=== PATIENT | female | born 1995 | race Caucasian/White ===

== ENCOUNTER 2018-06-25 12:06 | Observation (INO) ==
[2018-06-25] MEDS ORDERED: 0.9 % Sodium Chloride 1,000 ML IVC ONE ×2 (12:30→14:59)
[2018-06-25 12:51] LABS: Bilirubin,Urine Negative (Negative); Blood,Urine Negative (Negative); Clarity,Urine Cloudy (Clear); Color,Urine Yellow (Yellow); Glucose,Urine (UA) Normal (Normal); Ketones,Urine >=160 mg/dL (Negative); Leukocyte Esterase,Urine Moderate (Negative); Nitrite,Urine Negative (Negative); Protein,Urine 100 mg/dL (Neg-Trace); Urobilinogen,Urine Normal (Normal)
[2018-06-25 12:52] LABS: Bacteria,Urine Many per hpf (None-Few); Squamous Epithelial Cell,Urine Many per lpf (None-Few); WBC,Urine 50-100 per hpf (0-3)
[2018-06-25] MEDS ORDERED: Metoclopramide 10 MG/2 ML VIAL IVP ONE (13:16)
[2018-06-25 13:26] LABS: RBC,Urine 0-3 per hpf (0-3)
[2018-06-25 13:41] LABS: Basophils % 0.3 %; Hemoglobin 14.3 g/dL (11.5-15.4); Immature Granulocytes % 0.4 % (0-4); Lymphocytes # 1.2 K/mcL (0.6-4.6); Lymphocytes % 9.9 %; Mean Corpuscular HGB Conc 34.9 g/dL (31.6-35.5); Mean Corpuscular Volume 88.7 fL (83.0-100.0); Mean Platelet Volume 10.4 fL (9.4-12.4); Monocytes # 0.5 K/mcL (0.0-1.3); Monocytes % 4.1 %; Neutrophils # 10.4 K/mcL (1.6-8.9); Platelet Count 325 K/mcL (140-400); Red Blood Count 4.62 M/mcL (3.82-4.97); Red Cell Distribution Width 11.6 % (11.5-14.5); Segmented Neutrophils % 85.3 %
--- NOTE | 2018-06-25 13:49 | Emergency Department Note ---
Disposition Clinical Impression: Hyperemesis gravidarum, Dehydration, Urine ketones Disposition: Admitted As Inpatient Condition: Good Referrals: Josiah Gutierrez DO [Primary Care Provider] - General Adult HPI - General Chief complaint: ED Nausea/Vomiting/Diarrhea Stated complaint: dehydration, 12wks, 2 days Time Seen by Provider: 06/25/18 12:19 Source: patient Mode of arrival: ambulatory Limitations: no limitations Nursing Notes Reviewed: Yes Vital Signs Reviewed: Yes - History of Present Illness HPI Narrative: Patient seen and evaluated today at OB office. Patient with nausea vomiting and concern for dehydration. Patient had urinalysis which showed protein and ketones. The patient has been dealing with persistent nausea and vomiting since she found out she is . She has been treated with multiple anti-emetics at home without significant relief. Patient was seen in the ER earlier in the week and treated within the emergency department and sent home. Ultrasound reportedly per patient looked well today without any abnormalities. She was referred to the ER for symptomatically treatment and admission. Pain Scale: 0 - Related Data Home Medications Medication Instructions Recorded Confirmed No Known Home Drugs 06/25/18 06/25/18 Allergies Allergy/AdvReac Type Severity Reaction Status Date / Time No Known Allergies Allergy Verified 05/19/18 13:16 All systems ED: reviewed and negative except as stated. Review of Systems: As Per HPI Constitutional: Reports: weakness. Denies: fever, chills Cardiovascular: Denies: chest pain Respiratory: Denies: cough, dyspnea Gastrointestinal: Reports: abdominal pain, nausea, vomiting Genitourinary: Denies: urgency, dysuria Musculoskeletal: Denies: back pain Integumentary: Denies: rash, abrasion Neurological: Denies: headache Endocrine: Reports: fatigue Past Medical History - Past Medical History Medical history: Reports: no medical history Psychiatric history: Reports: no psych history CATHODE BUILDER history: Reports: no CATHODE BUILDER history - Social History Smoking Status: Never smoker Smokeless Tobacco Status: No Alcohol use: Reports: none Drug use: Reports: none Physical Exam General: Well appearing, nontoxic, no acute distress Head: Normocephalic Atraumatic Eyes: PERRL, EOMI ENT: Airway patent, no stridor Neck: supple, no meningismus Chest: Lungs clear to auscultation bilateral Cardiac: Regular rate and rhythm, no murmurs, rubs or gallops Abdomen: soft, nontender, nondistended; no guarding, rebound, or tenderness to percussion Musculoskeletal: Calves symmetric, nontender, no palpable cord Skin: No rash, normal skin tone Neuro: Alert and Oriented to person, place, and time; No focal deficit, CN 2-12 symmetric and intact Course - Reevaluation(s) Reevaluation #1: The patient received Reglan and Benadryl with no longer need to hold the emesis bag with continued complaint of significant nausea and vomiting. Phenergan will be tried. Macrobid initially ordered for her uric UTI but given her first trimester she will have this switched to Keflex. - Consultations Consultation #1: Discussed with OB. They are unable to admit secondary to her being 20 weeks. They do agree to the need for admission and they will consult. Consultation #2: Discussed with hospitalist. Patient accepted for admission. Vital Signs Temperature 98.0 F 06/25/18 12:10 Pulse Rate 108 06/25/18 12:10 Respiratory Rate 16 06/25/18 12:10 Blood Pressure 123/80 06/25/18 12:10 O2 Sat by Pulse Oximetry 99 06/25/18 12:10 Temperature 98.1 F 06/25/18 16:11 Pulse Rate 75 06/25/18 16:11 Respiratory Rate 14 06/25/18 16:11 Blood Pressure 105/70 06/25/18 16:11 O2 Sat by Pulse Oximetry 99 06/25/18 16:11 Oxygen Delivery Oxygen Delivery Room Air Medical Decision Making - Lab Data Result diagrams: 06/25/18 13:24 06/25/18 13:24 Lab Results 06/25/18 06/25/18 06/25/18 Range/Units 12:23 13:24 13:24 WBC 12.1 H (4.3-11.1) K/mcL RBC 4.62 (3.82-4.97) M/mcL Hgb 14.3 (11.5-15.4) g/dL Hct 41.0 (35.3-44.9) % MCV 88.7 (83.0-100.0) fL MCH 31.0 (28.0-33.3) pg MCHC 34.9 (31.6-35.5) g/dL RDW 11.6 (11.5-14.5) % Plt Count 325 (140-400) K/mcL MPV 10.4 (9.4-12.4) fL Immature Gran % 0.4 (0-4) % Seg Neutrophils % 85.3 % Lymphocytes % 9.9 % Monocytes % 4.1 % Eosinophils % 0.0 % Basophils % 0.3 % Neutrophils # 10.4 H (1.6-8.9) K/mcL Lymphocytes # 1.2 (0.6-4.6) K/mcL Monocytes # 0.5 (0.0-1.3) K/mcL Eosinophils # 0.0 (0.0-0.6) K/mcL Basophils # 0.0 (0.0-0.2) K/mcL Sodium 136 (136-145) mEq/L Potassium 3.5 (3.5-5.1) mEq/L Chloride 102 (98-107) mEq/L Carbon Dioxide 20 L (23-29) mEq/L BUN 5 L (6-20) mg/dL Creatinine 0.44 L (0.60-1.20) mg/dL Est GFR ( Amer) > 60 (> 60) Est GFR (Non-Af Amer) > 60 (> 60) BUN/Creatinine Ratio 11 (6-26) Glucose 95 (70-105) mg/dL Calculated Osmolality 279 L (280-300) Calcium 9.6 (8.6-10.3) mg/dL Total Bilirubin 0.4 (0.3-1.0) mg/dL Direct Bilirubin 0.1 (0.0-0.2) mg/dL Indirect Bilirubin 0.3 (0.0-1.2) mg/dL AST 9 L (13-39) Units/L ALT 9 (7-52) Units/L Alkaline Phosphatase 44 (34-104) Units/L Serum Total Protein 7.8 (6.4-8.9) g/dL Albumin 4.2 (3.5-5.7) g/dL Globulin 3.6 H (2.4-3.5) g/dL Albumin/Globulin Ratio 1.2 (1.1-2.2) Lipase 9 L (11-82) Units/L Urine Color Yellow (Yellow) Urine Clarity Cloudy A (Clear) Urine pH 6.0 (5.0-8.0) pH Units Ur Specific [place] 1.030 H (1.010-1.025) Urine Protein 100 H (Neg-Trace) mg/dL Urine Glucose (UA) Normal (Normal) mg/dL Urine Ketones >=160 H (Negative) mg/dL Urine Blood Negative (Negative) Urine Nitrite Negative (Negative) Urine Bilirubin Negative (Negative) Urine Urobilinogen Normal (Normal) mg/dL Ur Leukocyte Esterase Moderate H (Negative) Urine Microscopic RBC 0-3 (0-3) per hpf Urine Microscopic WBC 50-100 H (0-3) per hpf Ur Squamous Epith Cells Many H (None-Few) per lpf Urine Bacteria Many H (None-Few) per hpf Hyaline Casts Test Not Performed Urine Yeast Test Not Performed Ur Culture Indicated? NO. A (NO) Blood Type Antibody Screen 06/25/18 Range/Units 13:24 WBC (4.3-11.1) K/mcL RBC (3.82-4.97) M/mcL Hgb (11.5-15.4) g/dL Hct (35.3-44.9) % MCV (83.0-100.0) fL MCH (28.0-33.3) pg MCHC (31.6-35.5) g/dL RDW (11.5-14.5) % Plt Count (140-400) K/mcL MPV (9.4-12.4) fL Immature Gran % (0-4) % Seg Neutrophils % % Lymphocytes % % Monocytes % % Eosinophils % % Basophils % % Neutrophils # (1.6-8.9) K/mcL Lymphocytes # (0.6-4.6) K/mcL Monocytes # (0.0-1.3) K/mcL Eosinophils # (0.0-0.6) K/mcL Basophils # (0.0-0.2) K/mcL Sodium (136-145) mEq/L Potassium (3.5-5.1) mEq/L Chloride (98-107) mEq/L Carbon Dioxide (23-29) mEq/L BUN (6-20) mg/dL Creatinine (0.60-1.20) mg/dL Est GFR ( Amer) (> 60) Est GFR (Non-Af Amer) (> 60) BUN/Creatinine Ratio (6-26) Glucose (70-105) mg/dL Calculated Osmolality (280-300) Calcium (8.6-10.3) mg/dL Total Bilirubin (0.3-1.0) mg/dL Direct Bilirubin (0.0-0.2) mg/dL Indirect Bilirubin (0.0-1.2) mg/dL AST (13-39) Units/L ALT (7-52) Units/L Alkaline Phosphatase (34-104) Units/L Serum Total Protein (6.4-8.9) g/dL Albumin (3.5-5.7) g/dL Globulin (2.4-3.5) g/dL Albumin/Globulin Ratio (1.1-2.2) Lipase (11-82) Units/L Urine Color (Yellow) Urine Clarity (Clear) Urine pH (5.0-8.0) pH Units Ur Specific [place] (1.010-1.025) Urine Protein (Neg-Trace) mg/dL Urine Glucose (UA) (Normal) mg/dL Urine Ketones (Negative) mg/dL Urine Blood (Negative) Urine Nitrite (Negative) Urine Bilirubin (Negative) Urine Urobilinogen (Normal) mg/dL Ur Leukocyte Esterase (Negative) Urine Microscopic RBC (0-3) per hpf Urine Microscopic WBC (0-3) per hpf Ur Squamous Epith Cells (None-Few) per lpf Urine Bacteria (None-Few) per hpf Hyaline Casts Urine Yeast Ur Culture Indicated? (NO) Blood Type O POSITIVE Antibody Screen NEGATIVE
[2018-06-25 14:04] LABS: Alanine Aminotransferase 9 Units/L (7-52); Albumin 4.2 g/dL (3.5-5.7); Albumin/Globulin Ratio 1.2 (1.1-2.2); Alkaline Phosphatase 44 Units/L (34-104); Aspartate Amino Transferase 9 Units/L (13-39); BUN/Creatinine Ratio 11 (6-26); Bilirubin,Direct 0.1 mg/dL (0.0-0.2); Bilirubin,Indirect 0.3 mg/dL (0.0-1.2); Bilirubin,Total 0.4 mg/dL (0.3-1.0); Blood Urea Nitrogen 5 mg/dL (6-20); Calcium 9.6 mg/dL (8.6-10.3); Carbon Dioxide 20 mEq/L (23-29); Chloride 102 mEq/L (98-107); Globulin 3.6 g/dL (2.4-3.5); Glucose 95 mg/dL (70-105); Lipase 9 Units/L (11-82); Osmolality,Calculated 279 (280-300); Potassium 3.5 mEq/L (3.5-5.1); Sodium 136 mEq/L (136-145); Total Protein 7.8 g/dL (6.4-8.9); eGFR For Non-African Americans > 60 (> 60)
[2018-06-25] MEDS ORDERED: Nitrofurantoin (BID) 100 MG CAPSULE PO SCH (14:30)
[2018-06-25] MEDS ORDERED: cephALEXin 250 MG CAPSULE PO STA (14:55)
[2018-06-25] MEDS ORDERED: Naloxone 0.4 MG/ML INJ IVP PRN (14:58)
[2018-06-25] MEDS ORDERED: Ringers Solution, Lactated 1,000 ML IVC SCH (15:00)
--- NOTE | 2018-06-25 15:15 | Internal Med History&Physical ---
Date of Encounter: 06/25/18 Time of Encounter: 16:24 Internal Medicine - H&P: HPI Chief complaint: Vomiting Admitted From: Home Plans for Post Hospital Care: Home History of present illness: Ms. Meza is a 22 year old female with no PMH who is at 12 weeks EGA presenting with persistent nausea and vomiting and being unable to hold any food down since 6 days ago, prior to that her n/v had improved She denies any other complains ROS is not contributory Work up in ER shows mild leukocytosis, no left shift. Chem/LFT/Lipase WNL. UA was concentrated, with ketonuria and +LE. No nitrites, culture has been sent She will be placed on observation for SIRS, Hyperemesis and Asymptomatic bacteriuria. She is hemodynamically and clinically stable at this time OBGYN will be seeing in consult Past Med Surg Social Fam HX - Past Medical History Medical history: no medical history Psychiatric history: no psych history - Social History Smoking Status: Never smoker Smokeless Tobacco Status: No Alcohol use: none Drug use: none Internal Medicine - H&P: Meds No Known Home Drugs 06/25/18 [History] Allergy/AdvReac Type Severity Reaction Status Date / Time No Known Allergies Allergy Verified 05/19/18 13:16 All Systems PM: A 10-system review of systems was performed and is negative for pertinent findings except as documented above in the HPI. - Constitutional Constitutional: no chills, no fever(s), no night sweats - EENT Eyes: no change in vision, no discharge, no pain, no photophobia Ears: no ear discharge, no ear pain, no tinnitus Nose, mouth and throat: no dysphagia, no nasal discharge, no neck pain, no sore throat - Cardiovascular Cardiovascular ROS IM: no chest pain, no diaphoresis, no dyspnea, no lightheadedness, no palpitations, no syncope - Respiratory Respiratory: no cough, no dyspnea, no wheezing, no excessive phlegm production - Gastrointestinal Gastrointestinal: nausea, vomiting, no abdominal pain, no diarrhea, no hematemesis, no hematochezia, no melena - Genitourinary Genitourinary: no change in urinary stream, no dysuria, no flank pain, no hematuria - Musculoskeletal Musculoskeletal ROS IM: no numbness, no tingling - Integumentary Integumentary IM: no rash, no unusual bruising - Neurological Neurological ROS: no confusion, no convulsions, no focal weakness, no numbness, no tingling, no tremor(s) - Hematologic/Lymphatic Hematologic/Lymphatic: no easy bruising - Constitutional Vitals: Temp Pulse Resp BP Pulse Ox 98.0 F 108 16 123/80 99 06/25/18 12:10 06/25/18 12:10 06/25/18 12:10 06/25/18 12:10 06/25/18 12:10 General appearance: Present: A&O X 3, pleasant, no acute distress Exam: see below - Head Head exam: Present: atraumatic, normocephalic - Eye Eye exam: Present: PERRL, conjuntiva pink, sclera anicteric Pupils: Present: PERRL - Neck Neck exam general surgery: Present: supple, trachea midline. Absent: lymphadenopathy - Respiratory Respiratory exam: Present: CTAB. Absent: accessory muscle use, rales, rhonchi, wheezes - Cardiovascular Cardiovascular exam: Present: RRR, +S1, +S2. Absent: diastolic murmur, gallop, rubs, systolic murmur - GI/Abdominal GI/Abdominal exam: Present: normal bowel sounds, soft, no peritoneal signs. Absent: distended, tenderness - Extremities Exam Extremities exam: Present: warm, radial pulses palpable and symmetrical. Absent: calf tenderness, cyanotic, pedal edema - Neurological Exam Neurological exam: Present: CN II-XII intact, oriented X3, no focal deficits. Absent: pronater drift, facial droop, speech deficit - Skin Skin exam: Present: dry, intact Internal Med - H&P Results - Labs CBC & Chem 7: 06/25/18 13:24 06/25/18 13:24 Labs: Short CBC 06/25/18 Range/Units 13:24 WBC 12.1 H (4.3-11.1) K/mcL Hgb 14.3 (11.5-15.4) g/dL Hct 41.0 (35.3-44.9) % Plt Count 325 (140-400) K/mcL Neutrophils # 10.4 H (1.6-8.9) K/mcL BMP 06/25/18 13:24 Sodium 136 Potassium 3.5 Chloride 102 Carbon Dioxide 20 L BUN 5 L Creatinine 0.44 L Glucose 95 Calcium 9.6 Liver Function 06/25/18 Range/Units 13:24 Total Bilirubin 0.4 (0.3-1.0) mg/dL Direct Bilirubin 0.1 (0.0-0.2) mg/dL AST 9 L (13-39) Units/L ALT 9 (7-52) Units/L Alkaline Phosphatase 44 (34-104) Units/L Albumin 4.2 (3.5-5.7) g/dL Urine 06/25/18 Range/Units 12:23 Urine Color Yellow (Yellow) Urine Clarity Cloudy A (Clear) Urine pH 6.0 (5.0-8.0) pH Units Ur Specific [place] 1.030 H (1.010-1.025) Urine Protein 100 H (Neg-Trace) mg/dL Urine Glucose (UA) Normal (Normal) mg/dL - Assessment and plan (1) SIRS (systemic inflammatory response syndrome) Current Visit: Yes Status: Acute Assessment and plan: HR n admission 108, rapidly imroved with hydration Leukocytosis which could have been due to dehydration and or Await urine culture Continue IVF hydration (2) Asymptomatic bacteriuria during Current Visit: Yes Status: Acute Assessment and plan: COntinue Keflex, as long as patient can take po Follow urine culture (3) Hyperemesis gravidarum Current Visit: Yes Status: Acute Assessment and plan: Management per OTTO dempsey, dahiana (4) Current Visit: Yes Status: Acute Assessment and plan: OTTO dempsey noted Qualifiers: Weeks of gestation: 12 weeks Qualified Code(s): Z3A.12 - 12 weeks gestation of - Time Spent With Patient Total time spent is greater than 50% in coordination of care (as documented) at patient's floor/unit and/or counseling patient:
[2018-06-25] MEDS ORDERED: cefTRIAXone 1,000 MG in Water for inj. (sterile) 20 ML 10 ML IVP SCH (16:00)
--- NOTE | 2018-06-25 16:38 | OB/GYN Consult Note ---
Date of Encounter: 06/25/18 Time of Encounter: 16:20 Assessment and Plan (1) Hyperemesis gravidarum Current Visit: Yes Status: Acute Thank you for the consult. We recommend the following: Clear liquid diet unless able to tolerate and then reduce to NPO. May advance to low residue/bland diet after 12 hours of ability to tolerate clear liquids and then advance slowly. MVI daily with 0.6mg folic acid added All additional LR infusions should include 25mg of B6 at maintenance Reglan 10mg every 8 hours scheduled Zofran 8mg every 12 hours scheduled Chlorpromazine 25mg IV every 6 hours Phenergan 12.5mg every 4-6 hours, prn Continue antibiotics as ordered per ED for UTI. Change medications to PO tomorrow if tolerating bland diet Discussed with patient the importance of staying on regularly scheduled medications and expectations with related nausea and vomiting. POC per consult with Dr Finn (2) 12 weeks gestation of Current Visit: Yes Status: Acute History of Present Illness Consult date: 06/25/18 Requesting physician: Attila Vargas Reason for consult: other (Hyperemesis Gravidarum) Chief complaint: HG History of present illness: Ms Meza is a 22 year old at 12 weeks 2 days gestation that was sent to the ED from the office for evaluation after her today. She c/o a 30 pound weightloss since prior to and inability to keep food and water down. She states that she has tried unisom, vitamin b6, phenergan, benadryl, scopolamine patches, and zofran without success. She is seen by Dr Acevedo for her care. She denies any vaginal discharge, leaking of fluid, and vag inal bleeding/cramping. Past Med Surg Social Fam HX - Past Medical History Medical history: no medical history Psychiatric history: no psych history - Social History Smoking Status: Never smoker Smokeless Tobacco Status: No Alcohol use: none Drug use: none Medications and Allergies No Known Home Drugs 06/25/18 [History] Allergy/AdvReac Type Severity Reaction Status Date / Time No Known Allergies Allergy Verified 05/19/18 13:16 Review of Systems All Systems: reviewed and no additional remarkable complaints except as stated Exam - Vital Signs Vital signs: Initial Vital Signs Temp Pulse Resp BP Pulse Ox 98.0 F 108 16 123/80 99 06/25/18 12:10 06/25/18 12:10 06/25/18 12:10 06/25/18 12:10 06/25/18 12:10 - Constitutional Constitutional: well developed, well nourished, no acute distress, average body habitus - HEENT HEENT: Normocephaly, Mucus Membranes Dry - Abdomen Abdomen: Present: gravid, non tender - Extremities Deep Tendon Reflex Grade: 2+ Normal Results Result Diagrams: 06/25/18 13:24 06/25/18 13:24 Abnormal lab results WBC 12.1 K/mcL (4.3-11.1) H 06/25/18 13:24 Neutrophils # 10.4 K/mcL (1.6-8.9) H 06/25/18 13:24 Carbon Dioxide 20 mEq/L (23-29) L 06/25/18 13:24 BUN 5 mg/dL (6-20) L 06/25/18 13:24 Creatinine 0.44 mg/dL (0.60-1.20) L 06/25/18 13:24 Calculated Osmolality 279 (280-300) L 06/25/18 13:24 AST 9 Units/L (13-39) L 06/25/18 13:24 Globulin 3.6 g/dL (2.4-3.5) H 06/25/18 13:24 Lipase 9 Units/L (11-82) L 06/25/18 13:24 Urine Clarity Cloudy (Clear) A 06/25/18 12:23 Ur Specific [place] 1.030 (1.010-1.025) H 06/25/18 12:23 Urine Protein 100 mg/dL (Neg-Trace) H 06/25/18 12:23 Urine Ketones >=160 mg/dL (Negative) H 06/25/18 12:23 Ur Leukocyte Esterase Moderate (Negative) H 06/25/18 12:23 Urine Microscopic WBC 50-100 per hpf (0-3) H 06/25/18 12:23 Ur Squamous Epith Cells Many per lpf (None-Few) H 06/25/18 12:23 Urine Bacteria Many per hpf (None-Few) H 06/25/18 12:23 Ur Culture Indicated? NO. (NO) A 06/25/18 12:23 All other labs normal. Consult Discharge Plan - Plan Referrals: Josiah Gutierrez DO [Primary Care Provider] -
[2018-06-25] MEDS: Ondansetron 4 MG/2 ML VIAL IVP SCH (17:56)
[2018-06-25] MEDS: Pyridoxine (B-6) 25 MG in Ringers Solution, Lactated 1,000 ML IVPB SCH (18:08)
[2018-06-25] MEDS ORDERED: Pyridoxine (B-6) 50 MG TABLET PO SCH (21:00)
[2018-06-25] MEDS: cephALEXin 500 MG CAPSULE PO SCH (21:46)
[2018-06-26] MEDS: Metoclopramide 10 MG/2 ML VIAL IVP SCH ×2 (00:19→08:40)
[2018-06-26 05:23] LABS: Basophils # 0.1 K/mcL (0.0-0.2); Basophils % 0.6 %; Eosinophils # 0.1 K/mcL (0.0-0.6); Eosinophils % 1.3 %; Hematocrit 33.9 % (35.3-44.9); Hemoglobin 11.8 g/dL (11.5-15.4); Immature Granulocytes % 0.1 % (0-4); Lymphocytes # 2.6 K/mcL (0.6-4.6); Mean Corpuscular HGB Conc 34.8 g/dL (31.6-35.5); Mean Corpuscular Hemoglobin 31.1 pg (28.0-33.3); Mean Corpuscular Volume 89.4 fL (83.0-100.0); Mean Platelet Volume 10.5 fL (9.4-12.4); Monocytes # 0.7 K/mcL (0.0-1.3); Neutrophils # 4.9 K/mcL (1.6-8.9); Platelet Count 248 K/mcL (140-400); Red Blood Count 3.79 M/mcL (3.82-4.97); Red Cell Distribution Width 11.7 % (11.5-14.5)
[2018-06-26] MEDS: Ondansetron 4 MG/2 ML VIAL IVP SCH (05:26)
[2018-06-26 05:37] LABS: BUN/Creatinine Ratio 9 (6-26); Blood Urea Nitrogen 3 mg/dL (6-20); Calcium 8.4 mg/dL (8.6-10.3); Carbon Dioxide 19 mEq/L (23-29); Chloride 106 mEq/L (98-107); Glucose 95 mg/dL (70-105); Osmolality,Calculated 276 (280-300); Potassium 2.9 mEq/L (3.5-5.1); Sodium 135 mEq/L (136-145); eGFR For Non-African Americans > 60 (> 60)
[2018-06-26] MEDS: Pyridoxine (B-6) 25 MG in Ringers Solution, Lactated 1,000 ML IVPB SCH (05:46)
[2018-06-26] MEDS: cephALEXin 500 MG CAPSULE PO SCH (08:40)
[2018-06-26] MEDS: Potassium Chloride Elixir 20 MEQ/15 ML UDC PO SCH ×2 (08:43→10:38)
[2018-06-26] MEDS ORDERED: Prenatal Vit/FA 1 EACH TABLET PO SCH (09:00)
--- NOTE | 2018-06-26 10:20 | Discharge Summary ---
- NOTES TO OUTPATIENT PROVIDER Notes to Outpatient Provider: Patient was admitted for hyperemesis gravidarum. Mx with IVF with B6 and multiple anti-emetics. She was tolerating diet well and will be discharged on 06/26. To complete 5 day of Keflex for asymptomatic bacteriuria. Orders not resulted at time of discharge: Pending orders 06/25/18 14:23 Culture,Urine [RM] Stat Date of Encounter: 06/26/18 Time of Encounter: 08:00 - Discharge Diagnosis (1) Hyperemesis gravidarum Priority: Primary Status: Acute (2) SIRS (systemic inflammatory response syndrome) Priority: Secondary Status: Acute (3) Asymptomatic bacteriuria during Priority: Secondary Status: Acute (4) Priority: Secondary Status: Acute Qualifiers: Weeks of gestation: 12 weeks Qualified Code(s): Z3A.12 - 12 weeks gestation of Hospital course: Ms. Meza is a 22 year old female who is in 12 weeks gestation of who was admitted for hyperemesis gravidarum. Mx with IVF with B6 and multiple anti- emetics. She was tolerating diet well and will be discharged on 06/26. To comple te 5 day of Keflex for asymptomatic bacteriuria. Discharge discussed with: patient, nurse - Time Spent with Patient Total time spent providing and/or coordinating discharge services: 21 mins - Discharge Medications Prescriptions: Promethazine Syrup [Phenergan Syrup] 12.5 mg PO Q8HR PRN #150 mls PRN Reason: Nausea Ondansetron [Zofran ODT] 8 mg SL Q12HR #30 tab cephALEXin [Keflex] 500 mg PO QID 5 Days #20 capsule Home Medications: Ondansetron [Zofran ODT] 8 mg SL Q12HR #30 tab 06/26/18 [Rx] Promethazine Syrup [Phenergan Syrup] 12.5 mg PO Q8HR PRN #150 mls 06/26/18 [Rx] cephALEXin [Keflex] 500 mg PO QID 5 Days #20 capsule 06/26/18 [Rx] Allergies/Adverse Reactions: Allergy/AdvReac Type Severity Reaction Status Date / Time No Known Allergies Allergy Verified 05/19/18 13:16 Date of admission: 06/25/18 15:15 Primary care physician: Chase Gutierrez DO Consults: 06/25/18 14:25 Consult to DUAL HOSE CEMENTER [CONS] Stat Consulting Provider: ELECTRONIC DESIGN ENGINEER Nini Reason for Consult: dehydration Call Completed: No 06/25/18 16:30 Consult to Nutrition [CONS] Routine Comment: Consulting Provider: NUTRITION Reason for Dietary Consult: MST Score - Constitutional Vitals: Temp Pulse Resp BP Pulse Ox 98.5 F 86 14 107/72 98 06/26/18 06:55 06/26/18 06:55 06/26/18 06:55 06/26/18 06:55 06/26/18 08:20 General appearance: Present: A&O X 3, pleasant, no acute distress Exam: General: Alert and oriented, not in acute distress. Cardiovascular:Normal S1 & S2, No JVD. Pulse regular. Lungs: clear to auscultation, no wheezes/rales Abdomen:Soft, non-tender, no rigidity. Neurological:Normal cognition and motor skills. Non-focal - Patient Status Disposition: Home, Self-Care Condition: Good Functional capacity at discharge: independent ambulation Overall status at discharge: patient is progressing back to baseline - Discharge Instructions Instructions: Hyperemesis Gravidarum (DC) Follow Up With: Josiah Gutierrez DO [Primary Care Provider] - - Diet and Activity Activity: resume usual activities as tolerated Diet: advance to your usual diet
[2018-06-26 11:48] VITALS: BP 106/75
== END 2018-06-26 14:13 | disposition home or self-care (01) ==
LOC: EMEROOARM 12:06 → 3ANU 12:06 → SUATTDRO 15:15 → 3ANU 15:59
PROVIDERS: ADMIT Internal Medicine; ATTEND Internal Medicine

== ENCOUNTER → 2018-08-19 09:34 | Observation (INO) ==
[2018-08-19 02:21] LABS: Basophils % 0.4 %; Eosinophils % 0.5 %; Hemoglobin 12.4 g/dL (11.5-15.4); Immature Granulocytes % 0.3 % (0-4); Lymphocytes # 1.4 K/mcL (0.6-4.6); Lymphocytes % 17.2 %; Mean Corpuscular HGB Conc 34.4 g/dL (31.6-35.5); Mean Corpuscular Hemoglobin 31.2 pg (28.0-33.3); Mean Corpuscular Volume 90.7 fL (83.0-100.0); Mean Platelet Volume 9.9 fL (9.4-12.4); Monocytes # 0.9 K/mcL (0.0-1.3); Monocytes % 11.8 %; Neutrophils # 5.6 K/mcL (1.6-8.9); Platelet Count 276 K/mcL (140-400); Red Blood Count 3.97 M/mcL (3.82-4.97); Red Cell Distribution Width 12.2 % (11.5-14.5); Segmented Neutrophils % 69.8 %
[2018-08-19 02:30] LABS: Bilirubin,Urine Small (Negative); Blood,Urine Negative (Negative); Clarity,Urine Cloudy (Clear); Color,Urine Dark Yellow (Yellow); Glucose,Urine (UA) Normal (Normal); Ketones,Urine 40 mg/dL (Negative); Leukocyte Esterase,Urine Negative (Negative); Nitrite,Urine Negative (Negative); Protein,Urine 100 mg/dL (Neg-Trace); Specific Gravity,Urine > 1.030 (1.010-1.025); Urobilinogen,Urine Normal (Normal)
[2018-08-19 02:32] LABS: Bacteria,Urine Moderate per hpf (None-Few); Calcium Oxalate Crystals,Urine Present; RBC,Urine 0-3 per hpf (0-3); Squamous Epithelial Cell,Urine Moderate per lpf (None-Few); WBC,Urine 0-3 per hpf (0-3)
--- NOTE | 2018-08-19 06:02 | OB/GYN Progress Note ---
Date of Encounter: 08/19/18 Time of Encounter: 01:30 - Assessment and Plan (1) 20 weeks gestation of Current Visit: Yes Status: Acute heart rate auscultated at 140 Follow-up with Dr. Acevedo outpatient as scheduled (2) Flank pain Current Visit: Yes Status: Acute Renal ultrasound to rule out kidney stone Urology consult Subjective - Subjective Principal diagnosis: r/o kidney stone Interval history: Ms. Meza is a who presents with complaint of flank pain with nausea and vomiting starting last night. She reports that she vomited a single time at 2300. She is currently 20 weeks with a single IUP. She endorses good movement and denies leakage of fluid, vaginal bleeding, contractions. She does report a significant history for 5 other kidney stones with the most recent being 5 months ago. Antepartum ROS: new complaints (flank pain with vomiting), movement normal, no loss of fluid, no vaginal bleeding, no contractions Objective - Vital Signs Vital Signs: Intake and Output 08/18/18 08/18/18 08/19/18 15:59 23:59 07:59 Other: Weight 90.718 kg Patient Weight 08/19/18 23:59 Weight 90.718 kg - Exam FHR: auscultation normal (140) Auscultation: bilateral: normal Abdomen: Present: normal appearance, soft, gravid Uterus: Present: normal, firm - Labs Labs: Abnormal lab results Urine Clarity Cloudy (Clear) A 08/19/18 02:20 Ur Specific [place] > 1.030 (1.010-1.025) H 08/19/18 02:20 Urine Protein 100 mg/dL (Neg-Trace) H 08/19/18 02:20 Urine Ketones 40 mg/dL (Negative) H 08/19/18 02:20 Urine Bilirubin Small (Negative) H 08/19/18 02:20 Ur Squamous Epith Cells Moderate per lpf (None-Few) H 08/19/18 02:20 Urine Bacteria Moderate per hpf (None-Few) H 08/19/18 02:20
[~2018-08-19 09:34] MED LIST: *HR* HYDROmorphone (PF) 1 MG/ML SYRINGE IVP PRN; *HR* HYDROmorphone 2 MG/ML SYRINGE IVP PRN; *HR* Morphine 2 MG/ML SYRINGE IVP PRN; *HR* Nalbuphine 10 MG/ML AMPUL IV PRN; *HR* Promethazine 25 MG/ML VIAL IVP ONE; Ondansetron 4 MG/2 ML VIAL IVP PRN; Ringers Solution, Lactated 1,000 ML IVC ONE; Ringers Solution, Lactated 1,000 ML IVC SCH; Ringers Solution, Lactated 1,000 ML ONE
--- NOTE | 2018-08-19 09:53 | Urology - Consult Note ---
Date of Encounter: 08/19/18 Time of Encounter: 09:50 - Assessment and Plan (1) Flank pain Current Visit: Yes Status: Acute Assessment and plan: Patient is flank pain with a history of kidney stones. I personally reviewed the ultrasound and agree that there is no significant hydronephrosis. There may be a slight dilation of the right renal pelvis but the radiologist read the study is normal. She has no significant blood in the urine. The crystals indicate that she is at risk of stones but does not indicate that she has an active stone. If the pain persists would consider an MRI of the abdomen and pelvis for better evaluation however patient wishes to observe and not proceed with any further imaging or intervention. She requires a follow-up appointment with urology after her to discuss her stone disease, risk and potential need for more imaging Urology CN:HPI Consult date: 08/19/18 History of present illness: 23-year-old female. 20 weeks . History of kidney stones. Presents with significant flank discomfort. It is improved after pain medication. Ultrasound currently about hydronephrosis. She had a CT scan a pproximate one year ago that did show hydronephrosis in the right kidney with a stone in the bladder indicating a passed stone. She states she is intermittently had flank pain over the last year the last 4 months ago Past Med Surg Social Fam HX - Past Medical History Medical history: no medical history Psychiatric history: anxiety - Past Surgical History Additional surgical history: gallbladder - Social History Smoking Status: Never smoker Smokeless Tobacco Status: No Alcohol use: none Drug use: none - Family History Mother Hx Family Cardiac Disorders: No Hx Family Respiratory Disorders: No Hx Family Cancer: No Hx Family GI Disorders: No Hx Family Genitourinary Disorders: No Hx Family Endocrine Disorder: No Hx Family Musculoskeletal Disorders: No Hx Family Neuromuscular Disorders: No Hx Family Neurologic Disorders: No Hx Family HEENT Disorders: No Hx Family Autoimmune Disorders: No Hx Family Reproductive Disorders: No Hx Family Psychosocial Disorders: No Hx Family Medical Disorders: No Medications and Allergies Ondansetron [Zofran ODT] 8 mg SL Q12HR #30 tab 06/26/18 [Rx] Cephalexin [Keflex] 500 mg PO QID #14 capsule 08/13/18 [Rx] Allergy/AdvReac Type Severity Reaction Status Date / Time No Known Allergies Allergy Verified 11/10/18 13:16 Review of Systems - Constitutional fatigue, no chills, no fever(s) - EENT Nose, mouth and throat: no dizziness - Cardiovascular no chest pain - Gastrointestinal abdominal pain - Genitourinary Genitourinary: flank pain, no hematuria - Musculoskeletal back pain - Integumentary no erythema - Neurological no confusion - Psychiatric no anxiety - Hematologic/Lymphatic no easy bleeding - Allergic/Immunologic no throat swelling Exam - General physical appearance Present: no distress, no pain - Eyes Present: PERRL - ENT Present: normal nares, no congestion - Neck Present: no masses, no lymphadenopathy - Respiratory Present: normal respiratory effort - Cardiovascular Cardiovascular exam IM: RRR - Abdomen Abdomen: Present: soft. Absent: tender - Integumentary Present: no rash, no growths, no abnormal pigmentation. Absent: lesions - Neurologic Present: normal coordination. Absent: disoriented, confused - Additional Findings No obvious CVA tenderness Urology Results - Labs 08/19/18 02:10 Abnormal lab results Urine Clarity Cloudy (Clear) A 08/19/18 02:20 Ur Specific [place] > 1.030 (1.010-1.025) H 08/19/18 02:20 Urine Protein 100 mg/dL (Neg-Trace) H 08/19/18 02:20 Urine Ketones 40 mg/dL (Negative) H 08/19/18 02:20 Urine Bilirubin Small (Negative) H 08/19/18 02:20 Ur Squamous Epith Cells Moderate per lpf (None-Few) H 08/19/18 02:20 Urine Bacteria Moderate per hpf (None-Few) H 08/19/18 02:20 All other labs normal.
--- NOTE | 2018-08-19 14:10 | OB/GYN Progress Note ---
Date of Encounter: 08/19/18 Time of Encounter: 14:06 - Assessment and Plan (1) 20 weeks gestation of Status: Acute Patient is doing well, no LOF, VB or ctxs. Her pain has subsided. She wants to go home. VSS +heart tones (145) Plan is to discharge her home to f/u outpt Objective - Vital Signs Vital Signs: Intake and Output 08/18/18 08/19/18 08/19/18 23:59 07:59 15:59 Other: Weight 90.718 kg Patient Weight 08/19/18 23:59 Weight 90.718 kg - Labs Labs: Abnormal lab results Urine Clarity Cloudy (Clear) A 08/19/18 02:20 Ur Specific [place] > 1.030 (1.010-1.025) H 08/19/18 02:20 Urine Protein 100 mg/dL (Neg-Trace) H 08/19/18 02:20 Urine Ketones 40 mg/dL (Negative) H 08/19/18 02:20 Urine Bilirubin Small (Negative) H 08/19/18 02:20 Ur Squamous Epith Cells Moderate per lpf (None-Few) H 08/19/18 02:20 Urine Bacteria Moderate per hpf (None-Few) H 08/19/18 02:20
== END | disposition home or self-care (01) ==
LOC: 1NENULAB
PROVIDERS: ADMIT Advanced Practice Midwife; ATTEND Advanced Practice Midwife

== ENCOUNTER 2019-01-08 09:38 | Inpatient (IN) ==
[2019-01-08] MEDS ORDERED: Famotidine 20 MG/2 ML VIAL IVP PRN (09:53)
[2019-01-08] MEDS ORDERED: Ondansetron 4 MG/2 ML VIAL IVP PRN (09:53)
[2019-01-08] MEDS ORDERED: Metoclopramide 10 MG/2 ML VIAL IVP PRN (09:53)
[2019-01-08] MEDS ORDERED: Naloxone 0.4 MG/ML INJ IVP PRN (09:53)
[2019-01-08] MEDS ORDERED: *HR* Nalbuphine 10 MG/ML AMPUL IVP PRN (09:53)
[2019-01-08] MEDS ORDERED: Ringers Solution, Lactated 1,000 ML IVC SCH (10:00)
[2019-01-08 10:42] LABS: Basophils % 0.4 %; Eosinophils # 0.2 K/mcL (0.0-0.6); Eosinophils % 1.4 %; Hemoglobin 12.6 g/dL (11.5-15.4); Immature Granulocytes % 0.6 % (0-4); Lymphocytes # 2.4 K/mcL (0.6-4.6); Lymphocytes % 21.7 %; Mean Corpuscular HGB Conc 33.2 g/dL (31.6-35.5); Mean Corpuscular Hemoglobin 31.2 pg (28.0-33.3); Mean Corpuscular Volume 94.1 fL (83.0-100.0); Monocytes # 0.7 K/mcL (0.0-1.3); Neutrophils # 7.8 K/mcL (1.6-8.9); Platelet Count 323 K/mcL (140-400); Red Blood Count 4.04 M/mcL (3.82-4.97); Red Cell Distribution Width 13.8 % (11.5-14.5); Segmented Neutrophils % 69.9 %; White Blood Count 11.1 K/mcL (4.3-11.1)
[2019-01-08] MEDS: miSOPROStol 25 MCG TABLET VG PRN ×2 (10:46→15:20)
[2019-01-08 10:51] LABS: Amphetamine Screen,Urine Negative ng/mL (Cutoff=1000); Barbiturate Screen,Urine Negative ng/mL (Cutoff=200); Benzodiazepines Screen,Urine Negative ng/mL (Cutoff=200); Cannabinoid Screen,Urine Negative ng/mL (Cutoff = 50); Cocaine Screen,Urine Negative ng/mL (Cutoff= 300); Opiate Screen,Urine Negative ng/mL (Cutoff=300); Phencyclidine Screen,Urine Negative ng/mL (Cutoff=25)
--- NOTE | 2019-01-08 18:40 | OB/GYN History & Physical ---
Date of Encounter: 01/08/19 Time of Encounter: 18:35 Assessment and Plan (1) 40 weeks gestation of Current visit: Yes Status: Acute Pt admitted at 10am for IOL. Cytotec 50mcg PO given x2 per Dr. Miramontes's orders. Pt reports minimal discomfort with contractions. Plan to start pitocin now that it has been 4 hours since last dose of cytotec. Will AROM when able. Anticipate . (2) Anemia Current visit: Yes Status: Acute Qualifiers: Anemia type: iron deficiency Iron deficiency anemia type: unspecified iron deficiency Qualified Code(s): D50.9 - Iron deficiency anemia, unspecified History of Present Illness Chief complaint: IOL HPI: Ms. Meza is a 23 year old female presenting at 40w3d for IOL. This has been complicated by anemia for which she takes iron. Baby was breech but is now vertex. The patient also had severe hyperemesis and a right kidney stone. No other complications. O positive Rubella immune Serologies negative GBS negative. Past Med Surg Social Fam HX - Past Medical History Medical history: no medical history Psychiatric history: anxiety - Past Surgical History Additional surgical history: gallbladder - Social History Smoking Status: Never smoker Smokeless Tobacco Status: No Alcohol use: none Drug use: none - Family History Mother Adopted: No Living Status: Still Living Hx Family Cardiac Disorders: No Hx Family Respiratory Disorders: No Hx Family Cancer: Yes (ALL leukemia) Hx Family GI Disorders: No Hx Family Genitourinary Disorders: No Hx Family Endocrine Disorder: No Hx Family Musculoskeletal Disorders: No Hx Family Neuromuscular Disorders: No Hx Family Neurologic Disorders: No Hx Family HEENT Disorders: No Hx Family Autoimmune Disorders: No Hx Family Reproductive Disorders: No Hx Family Psychosocial Disorders: No Hx Family Medical Disorders: No Obstetrical History - Pregnancies : 1 Medications and Allergies Ondansetron [Zofran ODT] 8 mg SL Q12HR #30 tab 06/26/18 [Rx] Ferrous Sulfate 01/08/19 [History] Allergy/AdvReac Type Severity Reaction Status Date / Time No Known Allergies Allergy Verified 05/19/18 13:16 Exam - Constitutional Constitutional: well developed, well nourished, no acute distress - HEENT HEENT: Mucus Membranes Moist - Lungs Respiratory exam: CTAB - Cardiovascular Cardiovascular exam: RRR - Abdomen Abdomen: Present: gravid, non tender - Extremities Extremities exam: normal inspection - Vulva Vulva: bilateral: normal - Vagina Vagina: Present: normal moisture - Cervix Dilation: 3 (per RN) - Anus/Rectum Anus/Rectum: Present: normal perianal skin Results Result Diagrams: 01/08/19 10:20 All other labs normal. - VTE Reasons for not Prescribing Prophylaxis: Treatment not Indicated - Low risk for VTE
[2019-01-08] MEDS ORDERED: *HR* FentaNYL (PF) 100 MCG/2 ML VIAL EP ONE (19:10)
--- NOTE | 2019-01-08 19:10 | Anesthesia Evaluation PreOp ---
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 MARKETING SPECIALIST History: Denies Any Significant HX Other Medical History: GERD Anesthesia History: No Prior Anesthetic Complications, Past Anesthesia (lolis) : Yes Test: Positive Alcohol Use: none Drug use: none Medications and Allergies Ondansetron [Zofran ODT] 8 mg SL Q12HR #30 tab 06/26/18 [Rx] Ferrous Sulfate 01/08/19 [History] Allergy/AdvReac Type Severity Reaction Status Date / Time No Known Allergies Allergy Verified 05/19/18 13:16 - Meds/Allergy Pre-op Review Medications Reviewed: Yes Allergies Reviewed: Yes Beta Blockers on Current Med List: No Anesthesia Results - Labs 01/08/19 10:20 Anesthesia Exam 114/82 85 16 fht 143 Height: 5'6" Weight: 104 k NPO (# of Hours): 12 Pain Scale: 2 Pain Scale Used: Numeric (1 - 10) - HEENT Pupil (Motor): Pupils equal Mallampati: II Teeth: Normal Oral Opening: Greater than 3 - GLOBAL MARKETING SPECIALIST LOC: Oriented GLOBAL MARKETING SPECIALIST Motor: Normal RUE, Normal LUE, Normal RLE, Normal LLE, Normal Face GLOBAL MARKETING SPECIALIST Sensory: Normal: RUE, LUE, RLE, LLE, Face - Cardiac Rhythm: Regular Murmur: None - Pulmonary Breath Sounds: bilateral Clear Respiratory Effort: Symmetrical Anesthesia Assess/Plan ASA Score: 2 Level of consciousness: Cooperative Anesthetic Plan: Epidural (risks discussed, questions answered, consented) Autologous Blood: No Monitoring Plan: Standard Monitors Recovery Plan: Other
[2019-01-08] MEDS ORDERED: Epidural Premix (fent/bupiv) 110 ML EP SCH (19:15)
[2019-01-08] MEDS ORDERED: Oxytocin 20 units/ LR 1000 mL 20 UNIT/1,000 ML BAG IVC SCH (19:15)
[2019-01-08] MEDS ORDERED: *HR* FentaNYL (PF) 100 MCG/2 ML VIAL ONE (20:45)
--- NOTE | 2019-01-08 22:35 | Anesthesia Procedures ---
Date of Encounter: 01/08/19 Time of Encounter: 22:33 Procedures: Anesthesia - Epidural/Spinal Patient ID/Chart reviewed: Yes Patient examined: Yes OB Eval: Gestational age: 40 OB Eval: : 1 OB Eval: Hx Para: 0 OB Eval: Dilated at (cm): 5 OB Eval: Contractions: Non-stressed pattern Consent Obtained: Yes Supplemental Oxygen: None/Room Air Site Prep: Aseptic Technique, Sterile prep and drape, 0.5% Chlorhexidine/Alcohol Patient position: upright Local Anesthetic: Lidocaine 1% Amount of Local Anesthetic used: 3 Touhy Needle Gauge: 18 Touhy Needle Depth (cm): 8 Catheter Depth at Skin (cm): 20 Test Dose (1.5% Lido + Epi): Volume given (mls): 3 Test Dose Result: Negative Loading Dose: Fentanyl (mcg): 100 Loading Dose: Other: ropivacaine 0.2% 5cc Loading Dose Administered: Thru Touhy Needle Infusion Med: 0.125% Bupivacaine w/ 2 mcg/ml Fentanyl Infusion Rate (mls/hr): 15 (pcea 5 cc q30") Catheter Secured in Place: Tegaderm Interspace Used: L2-L3 Loss of Resistance (SIXTO): Yes Blood: No CSF: No Paresthesia: No Procedure: aseptic, tolerated well VSS, effective Vitals + FHT's: 130/88 208 26 fht 144
--- NOTE | 2019-01-08 23:23 | OB Labor Progress Note ---
Date of Encounter: 01/08/19 Time of Encounter: 23:20 Labor Progress Note - Subjective Subjective: Pt comfortable with epidural. - Vital Signs Vital Signs: BP low following epidural. - Cervix Cervix: 5-6/100/0 - Heart Tones Heart Tones: Category II, prolonged decels following epidural, likely due to hypotension. - Interventions Interventions: Pt repositioned. Pitocin off. IV fluid bolus. Medication for BP per anesthesia orders. IUPC placed, FSE placed. FHT improved with pt in right lateral position. - Plan Plan: Continue to monitor. Anticipate .
--- NOTE | 2019-01-09 03:03 | OB/GYN Procedure Note ---
Delivery - Delivery Date: 01/09/19 Provider: Vikas Miramontes Intrapartum events: none Delivery induction: oxytocin, misoprostol Delivery monitor: internal FHT, internal uterine Anesthesia: epidural Quantitated Blood Loss: 100 - (s) Infant A Delivery Date: 01/09/19 Delivery Time: 02:52 Presentation: vertex Position: BELKIS Gender: Male Viability: Viable Weight Gram: 3.425 kg at 1 minute: 8 at 5 mins: 8 Shoulder Dystocia: not encountered Specimens collected: cord blood Placenta: complete extraction Cord: nuchal cord (x1) - Repair Episiotomy: none Laceration Description: Perineal - 1st Degree - Complications Delivery complications: none - Disposition Mom disposition: stable in LDR Castile disposition: stable in LDR - Comments Comments: Lucila Montero is a 23 y/o now who delivered a viable male infant @ 0252hrs. heart tracing showed a CAT 2 status so I employed the use of a Kiwi vacuum. The procedure was explained to the patient and she gave consent. I made sure the vacuum was adequately placed on the head with no vaginal tissue trapped within the suction cup. As the patient pushed, I elevated the vacuum and within 2 pushes, the patient delivered. Nuchal cord x 1 reduced, cord clamped and cut before placing on Mom. Weight 3425g. delivered BELKIS. 1st degree laceration repaired with 3-0 vicryl. EBL 100. Mother and infant stable.
[2019-01-09] MEDS ORDERED: Acetaminophen 325 MG TABLET PO PRN (05:52)
[2019-01-09] MEDS ORDERED: Measles/Mumps/Rubella Vacc 0.5 ML VIAL SQ PRN (05:52)
[2019-01-09] MEDS ORDERED: Rho Immune Globulin 1,500 UNIT SYRINGE IM PRN (05:52)
[2019-01-09] MEDS ORDERED: Oxytocin 20 units/ LR 1000 mL 20 UNIT/1,000 ML BAG IVC SCH (05:52)
[2019-01-09] MEDS ORDERED: Benzocaine/Menthol 56 GM AEROSOL SPRAY TP PRN (07:47)
[2019-01-09] MEDS: Ibuprofen 600 MG TABLET PO PRN ×3 (07:48→19:38)
[2019-01-09] MEDS: Prenatal Vit/FA 1 EACH TABLET PO SCH (07:48)
[2019-01-10 07:36] LABS: Basophils # 0.1 K/mcL (0.0-0.2); Basophils % 0.5 %; Eosinophils # 0.3 K/mcL (0.0-0.6); Eosinophils % 3.5 %; Hematocrit 33.6 % (35.3-44.9); Hemoglobin 11.1 g/dL (11.5-15.4); Immature Granulocytes % 0.4 % (0-4); Lymphocytes # 2.8 K/mcL (0.6-4.6); Lymphocytes % 28.9 %; Mean Corpuscular Hemoglobin 31.4 pg (28.0-33.3); Mean Corpuscular Volume 94.9 fL (83.0-100.0); Mean Platelet Volume 9.8 fL (9.4-12.4); Monocytes # 0.7 K/mcL (0.0-1.3); Monocytes % 6.7 %; Neutrophils # 5.9 K/mcL (1.6-8.9); Platelet Count 237 K/mcL (140-400); Red Blood Count 3.54 M/mcL (3.82-4.97); Red Cell Distribution Width 13.9 % (11.5-14.5); White Blood Count 9.7 K/mcL (4.3-11.1)
[2019-01-10 08:42] VITALS: BP 117/86
[2019-01-10] MEDS: Ibuprofen 600 MG TABLET PO PRN (09:02)
[2019-01-10] MEDS: Prenatal Vit/FA 1 EACH TABLET PO SCH (09:02)
--- NOTE | 2019-01-10 09:29 | Discharge Summary ---
Date of Encounter: 01/10/19 Time of Encounter: 09:23 - Discharge Diagnosis (1) Anemia Priority: Secondary Status: Acute Qualifiers: Anemia type: iron deficiency Iron deficiency anemia type: unspecified iron deficiency Qualified Code(s): D50.9 - Iron deficiency anemia, unspecified (2) Vaginal delivery Priority: Primary Status: Acute Comments: Reports pain generally well-controlled but feeling achy overall at present. 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 Tolerating regular diet. Ambulating without difficulty. Reports good mood at present. - Discharge Medications Prescriptions: New Ibuprofen [Motrin] 600 mg PO Q6HR PRN #30 tablet PRN Reason: Cramping Benzocaine/Menthol Briscoe [Dermoplast Briscoe] 1 appl TP QID PRN aerosol PRN Reason: See Comments Docusate [Colace] 100 mg PO BID #30 capsule Discontinued Ondansetron [Zofran ODT] 8 mg SL Q12HR #30 tab Ferrous Sulfate Home Medications: Benzocaine/Menthol Briscoe [Dermoplast Briscoe] 1 appl TP QID PRN aerosol 01/10/19 [Rx] Docusate [Colace] 100 mg PO BID #30 capsule 01/10/19 [Rx] Ibuprofen [Motrin] 600 mg PO Q6HR PRN #30 tablet 01/10/19 [Rx] Allergies/Adverse Reactions: Allergy/AdvReac Type Severity Reaction Status Date / Time No Known Allergies Allergy Verified 05/19/18 13:16 Data Procedures and tests throughout hospitalization: Laboratory Tests 01/08/19 01/08/19 01/10/19 10:20 10:20 07:20 WBC 11.1 9.7 RBC 4.04 3.54 L Hgb 12.6 11.1 L D Hct 38.0 33.6 L MCV 94.1 94.9 MCH 31.2 31.4 MCHC 33.2 33.0 RDW 13.8 13.9 Plt Count 323 237 MPV 10.0 9.8 Immature Gran % 0.6 0.4 Seg Neutrophils % 69.9 60.0 Lymphocytes % 21.7 28.9 Monocytes % 6.0 6.7 Eosinophils % 1.4 3.5 Basophils % 0.4 0.5 Neutrophils # 7.8 5.9 Lymphocytes # 2.4 2.8 Monocytes # 0.7 0.7 Eosinophils # 0.2 0.3 Basophils # 0.0 0.1 Urine Opiates Screen Negative Ur Buprenorphine Scrn Negative Ur Barbiturates Screen Negative Ur Phencyclidine Scrn Negative Ur Amphetamines Screen Negative U Benzodiazepines Scrn Negative Urine Cocaine Screen Negative U Marijuana (THC) Screen Negative Ur Drug Screen Interp See Below Labs on day of discharge: Labs from last 24 hours 01/10/19 07:20 WBC 9.7 RBC 3.54 L Hgb 11.1 L D Hct 33.6 L MCV 94.9 MCH 31.4 MCHC 33.0 RDW 13.9 Plt Count 237 MPV 9.8 Immature Gran % 0.4 Seg Neutrophils % 60.0 Lymphocytes % 28.9 Monocytes % 6.7 Eosinophils % 3.5 Basophils % 0.5 Neutrophils # 5.9 Lymphocytes # 2.8 Monocytes # 0.7 Eosinophils # 0.3 Basophils # 0.1 Date of admission: 01/08/19 09:38 Primary care physician: Beverly Davidson Consults: 01/09/19 05:52 Consult to Vp Patient [CONS] Routine Comment: Vaginal delivery, consult needed Discharging clinician: Rachel Mauricio Anticipated date of discharge: 01/10/19 - Patient Status Disposition: Home, Self-Care Condition: Good Functional capacity at discharge: independent ambulation Overall status at discharge: patient is progressing back to baseline - Discharge Instructions Follow Up With: Beverly Davidson MD [Primary Care Provider] - Maral Acevedo DO [Partnered Physician] - 02/05/19 11:00 am Andrés Pyle MD [Partnered Physician] - 01/21/19 1:00 pm - Diet and Activity Activity: increase activity as tolerated Diet: advance to your usual diet Hospital Course Reason for admission: induction of labor Delivery: vacuum extraction Episiotomy: none Laceration: 1st degree Other procedures: none complications: none Discharge diagnosis: IUP at term delivered baby: male Hospital course: Delivery Date: 01/09/19 Provider: Vikas Miramontes Intrapartum events: none Delivery induction: oxytocin, misoprostol Delivery monitor: internal FHT, internal uterine Anesthesia: epidural Quantitated Blood Loss: 100 - (s) Infant A Delivery Date: 01/09/19 Delivery Time: 02:52 Presentation: vertex Position: BELKIS Gender: Male Viability: Viable Weight Gram: 3.425 kg at 1 minute: 8 at 5 mins: 8 Shoulder Dystocia: not encountered Specimens collected: cord blood Placenta: complete extraction Cord: nuchal cord (x1) - Repair Episiotomy: none Laceration Description: Perineal - 1st Degree - Complications Delivery complications: none - Disposition Mom disposition: home PP day#1 [place] disposition: home with mother - Time Attestation: Total time spent providing and/or coordinating discharge services: Time Spent: Less than 30 minutes Exam - Constitutional Vitals: Temp Pulse Resp BP Pulse Ox 98.1 F 107 16 117/86 96 01/10/19 08:00 01/10/19 08:00 01/10/19 08:00 01/10/19 08:00 01/09/19 20:40 General appearance IM: A&O X 3, answers questions appropriately - Respiratory Respiratory exam: Present: CTAB - Cardiovascular Cardiovascular exam IM: Present: RRR - GI/Abdominal GI/Abdominal exam IM: normal bowel sounds, soft - Uterine Tone: Firm Uterus Position: 2 Fingers Below Umbilicus - Extremities Exam Extremities exam IM: Present: normal inspection - Neurological Exam Neurological exam: normal gait, oriented X3
== END 2019-01-10 12:44 | disposition home or self-care (01) | DRG 560 ==
LOC: 1NENULAB 09:38 → 1NENUOBS 01-09 05:50
PROVIDERS: ADMIT Student in an Organized Health Care Education/Training Program; ATTEND Student in an Organized Health Care Education/Training Program